=== PATIENT | female | born 1975 | race Two or more races ===

== ENCOUNTER → 2024-03-08 | Outpatient (CLI) | payer MEDICAID, SELFPAY ==
--- NOTE | 2024-03-08 14:10 | XR_ITS ---
Examination: Bone densitometry Date and time of exam:March 08, 2024 1419 hours INDICATIONS: Premenopausal, calcium 6 months, diagnosis other specified disorders of bone Technique: Lumbar spine and hip total bone mineralization values of an calculated. Peak reference and age match control results have been displayed. Findings: Lumbar spine total bone mineralization is1.016 gm/cm2. This is 0.3 standard deviations below peak reference. This is 0.3 standard deviations above age-matched controls. Hip total bone mineralization is 0.938 gm/cm2 This is 0.2 standard deviations below peak reference. This is 0.1 standard deviations above age-matched controls Impression: There is normal mineralization based on lumbar spine measurements. There is osteopenia based on hip measurements
--- NOTE | 2024-03-08 14:30 | XR_ITS ---
Examination: Screening digital mammography, bilateral Computer aided detection 3-D breast Tomosynthesis, bilateral Date and time of exam: March 08, 2024 1318 hours Compared to mammograms dating to August 01, 2015 Indication: Screening Technique: Nonmagnified MLO, CC views of the breasts to been obtained, reconstructed from 3-D Tomosynthesis images. R2 computer aided detection program utilized for evaluation of suspicious masses and/or abnormal calcifications. 3-D Tomosynthesis images obtained. Findings: The breasts are heterogeneously dense, which may obscure small masses Benign calcifications. No interval suspicious masses Impression: BI-RADS category II: Benign Findings. Recommend 1 year follow-up mammogram.
== END | disposition home or self-care (01) ==
LOC: CDIM 14:01
PROVIDERS: Referring Provider Nurse Practitioner Family; Visit Provider Nurse Practitioner Family
DX: Z12.31 Encounter for screening mammogram for malignant neoplasm of breast (principal); R92.323 Mammographic fibroglandular density, bilateral breasts; R92.1 Mammographic calcification found on diagnostic imaging of breast; M85.88 Other specified disorders of bone density and structure, other site
CPT/HCPCS: 77063; 77067; 77080

== ENCOUNTER 2024-06-27 10:11 | Emergency (ER) | payer MEDICAID, SELFPAY ==
[2024-06-27 10:14] VITALS: BP 135/75; PULSE 79; RESP 18; TEMP 36.4; O2SAT 98; BMI 24.1
--- NOTE | 2024-06-27 10:20 | EDNOTE_ITS ---
Neuro Symptoms Deficit-RME/HPI General Stated Complaint: DIZZINESS X PM WITH LEFT BODY TINGLE X AM Time Seen by Provider: 06/27/24 10:22 Arrival date/time: 06/27/24 10:11 Limitations: no limitations RME / HPI RME / HPI Narrative: 49 year old female with no significant past medical history, presented to the ER BIBA with a chief complaint of dizziness. Patient also states complaint of nausea, vomiting, pain in the back of her neck. Per patient, she began feeling light-headed and dizzy around 0900 in the morning on 06/26/24. Her symptoms left and came back again around night at 1800. She woke up this morning unable to stand by herself, I can't stand straight, and ambulate due to her increased dizziness. Patient states she is dizzy when laying or standing and worsens with head movement. Per patient, she states she is taking vitamin D for medication. Patient denies history of vertigo. Related Data Home Medications ?Medication ?Instructions ?Recorded ?Confirmed calcium carbonate (Calcium 600) 600 mg PO QDAY 9 09/23/18 folic acid 800 mcg tablet 0.8 mg PO QDAY 09/23/18 07/03/14 vit no.95-ferrous 1 tab PO QDAY 09/23/1811/24 fumarate 28 mg-folic acid 800 mcg tablet () Previous Rx's ?Medication ?Instructions ?Recorded ibuprofen 800 mg tablet 800 mg PO Q6H PRN pain #90 t abs 12/06/18 dexamethasone 4 mg tablet 4 mg PO QDAY 3 days #3 tabs 06/27/24 hydrochlorothiazide 12.5 mg capsule 12.5 mg PO QAM #14 caps 06/27/24 meclizine 25 mg tablet 25 mg PO TID PRN motion sick ness 06/27/24 #20 tabs Allergies Allergy/AdvReac Type Severity Reaction Status Date / Time NKA* Allergy Uncoded 12/05/18 07:11 Review of Systems Review of Systems Systems Reviewed: All systems reviewed, normal except as documented Narrative Review of Systems: Gen: No fever, no chills, no weight loss EYES: No discharge, no visual changes, no pain HEENT: No ear pain, no congestion, no sore throat, +back of neck pain PULM: No shortness of breath, no cough, no congestion CV: No chest pain, no dyspnea on exertion, no palpitations GI: +nausea, +vomiting, no diarrhea, no pain, no constipation : No frequency, no urgency, no dysuria Musc/skel: No joint pain, no back pain Skin: No rash Psyc: No hallucinations, no depression Heme/Lymph: No easy bleeding or bruising tendencies Neuro: +weakness, +dizziness, no headache Past Medical History Past Medical History ENDOCRINE: Positive Endocrine Disorders Family History FAMILY HISTORY: Positive Family Cancer (MOTHER) Social History SMOKING STATUS: Never smoker SECOND HAND EXPOSURE: No SUBSTANCE USE: does not use ALCOHOL: Never ED Exam Narrative Physical exam: NIH STROKE SCALE 1a. Level of Consciousness (Alert, drowsy, etc) [0 = Alert; 1 = Drowsy; 2 = Stuporous; 3 = Coma] = 0 1b. LOC Questions: (Month, age) [0 = Answers both correctly; 1 = Answers one correctly; 2 = Incorrect] = 0 1c. LOC Commands (Open/ close eyes, make fist/ let go) [0 = Obeys both correctly; 1 = Obeys one correctly; 2 = Incorrect] = 0 2. Best Gaze (Eyes open - patient follows examiner?s finger or face) [0 = Normal; 1 = Partial gaze palsy; 2 = Forced deviation] = 0 3. Visual Bartlett (Introduce visual stimulus/ threat to pt?s visual field quadrants) [0 = No visual loss; 1 = Partial Hemianopia; 2 = Complete Hemianopia; 3 = Bilateral Hemianopia (Blind)] = 0 4. Facial Paresis (Show teeth, raise eyebrows and squeeze eyes shut) [0 = Normal; 1 = Minor; 2 = Partial; 3 = Complete] = 0 5a. Left Arm Motor Function (Elevate arm to 90 degrees if patient is sitting, 45 degrees if supine) [0 = No drift; 1 = Drift; 2 = Can?t resist gravity; 3 = No effort against gravity; 4 No movement; X = Untestable (Joint fusion or limb amp)] = 0 5b. Right Arm Motor Function (Elevate arm to 90 degrees if patient is sitting, 45 degrees if supine) [0 = No drift; 1 = Drift; 2 = Can?t resist gravity; 3 = No effort against gravity; 4 = No movement; X = Untestable (Joint fusion or limb amp)] = 0 6a. Left Leg Motor Function (Elevate 30 degrees with patient supine) [0 = No drift; 1 = Drift; 2 = Can?t resist gravity; 3 = No effort against gravity; 4 = No movement; X = Untestable (Joint fusion or limb amp)] = 0 6b.? Right Leg Motor Function (Elevate 30 degrees with patient supine) [0 = No drift; 1 = Drift; 2 = Can?t resist gravity; 3 = No effort against gravity; 4 = No movement; X = Untestable (Joint fusion or limb amp)] = 0 7. Limb Ataxia (Finger-nose, heel down clemente) [0 = No ataxia; 1 = Present in one limb; 2 = Present in two limbs] = 0 8. Sensory (Pin prick to face, arm, trunk, and leg; compare side to side) [0 = Normal; 1 = Partial loss; 2 = Severe loss] = 0 9. Best Language (Name item, describe a picture and read sentences) [0 = No aphasia; 1 = Mild to moderate aphasia; 2 = Severe aphasia; 3 = Mute] = 0 10. Dysarthria (Evaluate speech clarity by patient repeating listed words) [0 = Normal articulation; 1 = Mild to moderate slurring of words; 2 = Near to unintelligible or worse; X = Intubated or other physical barrier] = 0 11. Extinction and Inattention (Use information form prior testing to identify neglect or double simultaneous stimuli testing) [0 = No neglect; 1 = Partial neglect; 2 = Complete neglect] = 0 TOTAL SCORE = 0 General Limitations: Present no limitations General appearance: Present alert and in no apparent distress Head Head exam: Present atraumatic Eye Eye exam: Present normal appearance, PERRL and EOMI; Absent nystagmus ENT ENT exam: Present normal exam, normal oropharynx and mucous membranes moist Neck Neck exam: Present normal inspection, full ROM and trachea midline Chest Chest inspection: Present normal inspection and symmetric chest wall rise Respiratory Respiratory exam: Present normal lung sounds bilaterally Cardiovascular Cardiovascular exam: Present regular rate, normal rhythm and normal heart sounds Abdominal Exam Abdominal exam: Present soft and normal bowel sounds Extremities Exam Extremities exam: Present normal inspection and full ROM Back Exam Back exam: Present normal inspection and full ROM Neurological Exam Neurological exam: Present alert, oriented X3 and CN II-XII intact; Absent normal gait (patient was able to stable to stand and bare weight with assistance but could not ambulate ) Psychiatric Psychiatric exam: Present normal affect and normal mood Skin Skin exam: Present warm, dry, intact and normal color Course Course Course Narrative: 1024: Stroke alert was called. Congruent orders were made for stroke protocol. Quality Measures none Orders Category Date Time Status CT Screening NOW Care 06/27/24 10:[address] Screening NOW Care 06/27/24 10:[address] Screening NOW Care 06/27/24 13:40 Active Credit Investigator now Care 06/27/24 10:22 Active Continuous Pulse Oximetry QSHIFT Care 06/27/24 10:22 Completed MRI Screening NOW Care 06/27/24 10:24 Active NIH Stroke Scale NOW Care 06/27/24 10:22 Active Notify provider NEEDED Care 06/27/24 10:22 Active Nurse Swallow Screen x1 Care 06/27/24 10:22 Active Consult to Neurology / Tele-Neurology Stat Cons 06/27/24 10:[address] angio stroke protocol Stat Exams 06/27/24 10:[address] head/brain w con Stat Exams 06/27/24 13:[address] stroke protocol Stat Exams 06/27/24 10:24 Completed MR stroke protocol Stat Exams 06/27/24 10:24 Stop Req B-Type Natriuretic Peptide Stat Lab 06/27/24 10:45 Completed C-Reactive Protein Stat Lab 06/27/24 10:45 Completed CBC Stat Lab 06/27/24 10:45 Completed CMP [Comprehensive Metabolic Panel] Stat Lab 06/27/24 10:45 Completed Drug Screen,Urine Routine Lab 06/27/24 11:12 Completed Glycohemoglobin w (eAG) Stat Lab 06/27/24 10:45 Completed Lipid Panel Stat Lab 06/27/24 10:45 Completed Magnesium Stat Lab 06/27/24 10:45 Completed Partial Thromboplastin Time Stat Lab 06/27/24 10:45 Completed Prothrombin Time with INR Stat Lab 06/27/24 10:45 Completed Sed Rate (ESR) Stat Lab 06/27/24 10:45 Completed Troponin I Stat Lab 06/27/24 10:45 Completed Urinalysis Routine Lab 06/27/24 11:12 Completed Meclizine HCl [Antivert] Med 06/27/24 13:11 Discontinued 25 mg PO X1 ONE Ondansetron Inj [Zofran Inj] Med 06/27/24 10:22 Active 4 mg IV Q4HR PRN dexAMETHasone TAB [Decadron Tab] Med 06/27/24 13:22 Discontinued 4 mg PO X1 ONE hydroCHLOROthiazide Med 06/27/24 13:22 Discontinued 12.5 mg PO X1 ONE Code Status Routine Oth 06/27/24 10:22 Ordered EKG (RT) Stat RT 06/27/24 10:24 Draft Referral Material Control Specialist NOW 06/27/24 10:22 Active Reevaluation(s) Reevaluation #1: Patient is doing better. CT results are negative. Will give Meclizine, Decadron, Hydrochlorothiazide. Reevaluation pending. Time: 13:21 Vital Signs Vital signs: Vital Signs Temperature 97.5 F 06/27/24 10:14 Pulse Rate 79 06/27/24 10:14 Respiratory Rate 18 06/27/24 10:14 Blood Pressure 135/75 H 06/27/24 10:14 Pulse Oximetry (%) 98 06/27/24 10:14 Oxygen Delivery Method Room Air 06/27/24 10:14 Procedures -ED EKG Interpretation #1: Date of EK06/27/24 Time of EK:00 Rate: 70 Interpretation: Interpreted by me Additional EKG comment: sinus rhythm, rate 70, no ischemia, normal intervals Neuro Symptoms / Deficit MDM Narrative MDM Narrative:: I, Ami Jean, am scribing for and in the presence of Dr. Mtz. Patient presenting with symptoms of peripheral vertigo in the form of tinnitus and vertigo feeling This is my initial impression However because of incapacity asked patient to walk we had to consider the fact that she might have a stroke Her workup came back really negative Neurology did not even think that she had a stroke EBCT postcontrast was done to rule out possibility of venous thrombosis which came back negative CTA was negative Patient was given dexamethasone hydrochlorothiazide and meclizine which resolved her symptoms Patient will be discharged on the same regimen Final diagnosis Benign positional vertigo Plan Dexamethasone, hydrochlorothiazide, meclizine Patient was discharged from the Patient data External records reviewed:: [facility] previous records and EMS form Clinical information provided by:: patient and EMS Social determinants that could affect healthcare access:: none Patient has the following chronic illnesses:: none How is presenting disease/condition affected by chronic disease/condition?: uneffected by Evaluation data The following diagnostics were reviewed and interpreted by me:: lab results, radiology exam(s) and EKG tracing(s) Lab and/or radiology exams considered but not ordered:: none Interpretation Summary: Ordering Physician: Leann Mtz MD Date of Service: 06/27/24 Procedure(s): CT stroke protocol Accession Number(s): [id number] cc: Leann Mtz MD; Harpal Beverly MD~ Examination: CT brain head without contrast. 2-D sagittal coronal reconstructions Date and time of exam:June 27, 2024 1028 hrs. Indications: Stroke alert, left-sided body paresthesias beginning 9:00 AM this morning CTDI: vol (mGy):44.6 DLP: (mGycm):823 Technique: Multiple CT axial sections of the brain have been obtained, 5 mm slice thickness. Contrast has not been administered. 2-D sagittal, coronal reconstructions have been obtained Low dose protocols were performed. One or more of the following dose reduction techniques were used; automated exposure control, adjustment of the mA and/or KV according to patient size, use of iterative reconstruction technique. Findings: No significant ventricular enlargement. Intra-axial or extra-axial hemorrhage density is not seen. No mass effect or midline shift Basal cisterns are not remarkable. Fourth ventricle is midline. Cranial vault intact. Impression: Negative for acute hemorrhage, mass effect or midline shift Dictated By: Harpal Beverly MD Signed By: <Electronically signed by Harpal Beverly MD in OV> 06/27/24 1032 Ordering Physician: Leann Mtz MD Date of Service: 06/27/24 Procedure(s): CT angio stroke protocol Accession Number(s): [id number] cc: Leann Mtz MD; Ashley BlakelyC; Harpal Beverly MD~ Examination: CTA carotids with intravenous contrast CTA brain, head with intravenous contrast. 2-D sagittal, coronal reconstructions. 3-D reconstructions. Exam date and time: June 27, 2024 10:52 AM Indications: Stroke alert, onset left-sided paresthesias today CTDI: vol (mGy) 29.2 DLP: (mGycm) 106 Technique: Multiple CTA axial brain, head carotid images post intravenous contrast injection 100 cc, Isovue-370. 2-D sagittal, coronal reconstructions. 3-D reconstructions, 3-D post processing including vascular maximum intensity projection images. Low dose protocols were performed. One or more of the following dose reduction techniques were used; automated exposure control, adjustment of the mA and/or KV according to patient size, use of iterative reconstruction technique. Findings: No significant common carotid carotid bifurcation or internal carotid artery stenoses Dominant right vertebral artery no critical vertebral artery stenoses in the neck No cerebral large vessel arterial occlusions or thrombus The study is degraded by patient motion Impression: No significant neck arterial stenoses No cerebral large vessel arterial occlusions Dictated By: Harpal Beverly MD Signed By: <Electronically signed by Harpal Beverly MD in OV> 06/27/24 1129 ===== Procedure(s): CT head/brain w [facility] Accession Number(s): [id number] cc: Leann Mtz MD; Ashley Blakely-C; Harpal Beverly MD~ Examination: CT brain with intravenous contrast Technique: Multiple axial brain MRI images 2.0 mm slice thickness post intravenous administration 50 cc [id number] Exam date and time: June 27, 2024 1359 hrs. Indications: Dizziness headaches today Findings: Ventricles are normal in size and configuration No mass effect upon the ventricular system. No effacement cortical sulci No abnormal enhancing cerebellar or cerebral lesions Cranial vault is intact Impression: Negative for acute hemorrhage mass effect or midline shift No abnormal enhancing cerebellar or cerebral lesions Dictated By: Harpal Beverly MD Medications / Prescriptions Medications or Prescriptions considered but not ordered:: none Medication administrations:: Medication Administration History Ondansetron HCl (Ondansetron Inj 2 Mg/Ml Inj 2 Ml) 4 mg IV Q4HR PRN PRN Reason: NAUSEA OR VOMITING Stop: 07/27/24 10:21 Last Admin: 06/27/24 13:06 Dose: 4 mg Documented By: RD Discontinued Medications Dexamethasone (Dexamethasone 4 Mg Tablet) 4 mg PO X1 ONE; Protocol Stop: 06/27/24 13:23 Last Admin: 06/27/24 13:34 Dose: 4 mg Documented By: GM Hydrochlorothiazide (Hydrochlorothiazide 12.5 Mg Capsule) 12.5 mg PO X1 ONE Stop: 06/27/24 13:23 Last Admin: 06/27/24 13:34 Dose: 12.5 mg Documented By: ANI Meclizine HCl (Meclizine Hcl 25 Mg Tablet) 25 mg PO X1 ONE Stop: 06/27/24 13:12 Last Admin: 06/27/24 13:35 Dose: 25 mg Documented By: ANI see above. Consultations Consultation(s) initiated? (list below): No Diagnosis Neuro Differential Diagnosis: cerebrovascular accident and other (TIA, tendinitis ) Most likely diagnosis given after review of the tests above:: Episodic peripheral vertigo Admission Indicated Admission indicated?: not indicated Admission Request Was there a request for admission?: No Disposition Plan Disposition Plan: Discharge Discharge Attestation Discharge Attestation: The patient and all family members were given an opportunity to ask questions and understood the discharge instructions. Discharge instructions specifically effects, indications for sooner follow up or return to the emergency department, and the expected course of current diagnosis. Patient condition: Stable Discharge Plan Plan Patient Disposition: HOME (Self Care) Patient condition on transfer: Stable Prescriptions/Referrals Prescriptions/Med Rec: New meclizine 25 mg tablet 25 mg PO TID PRN (Reason: motion sickness) Qty: 20 0RF hydrochlorothiazide 12.5 mg capsule 12.5 mg PO QAM Qty: 14 0RF dexamethasone 4 mg tablet 4 mg PO QDAY 3 Days Qty: 3 0RF No Action calcium carbonate [Calcium 600] 600 mg calcium (1,500 mg) Tablet 600 mg PO QDAY folic acid 800 mcg Tablet 0.8 mg PO QDAY PNV cmb#95-ferrous fumarate-FA [] 28 mg iron- 800 mcg Tablet 1 tab PO QDAY ibuprofen 800 mg tablet 800 mg PO Q6H PRN (Reason: pain) Qty: 90 0RF Referrals: Ashley Blakely FNP-C [Primary Care Provider] - In 1 week Problem List Clinical Impression: Episodic peripheral vertigo Patient/Caregiver Discharge Instructions Discharge Activity: resume usual activities Education Materials: Vertigo Medicine Tx, Dizziness Vertigo and Balance ..., ED BPV Vertigo, ED Vertigo, Unspecified Print Language: Turkmen Stand Alone Forms: Tania Award Info., Patient Portal Info Letter
[2024-06-27 10:22] VITALS: PULSE 80; RESP 20; O2SAT 98
--- NOTE | 2024-06-27 10:24 | XR_ITS ---
Examination: CT brain head without contrast. 2-D sagittal coronal reconstructions Date and time of exam:June 27, 2024 1028 hrs. Indications: Stroke alert, left-sided body paresthesias beginning 9:00 AM this morning CTDI: vol (mGy):44.6 DLP: (mGycm):823 Technique: Multiple CT axial sections of the brain have been obtained, 5 mm slice thickness. Contrast has not been administered. 2-D sagittal, coronal reconstructions have been obtained Low dose protocols were performed. One or more of the following dose reduction techniques were used; automated exposure control, adjustment of the mA and/or KV according to patient size, use of iterative reconstruction technique. Findings: No significant ventricular enlargement. Intra-axial or extra-axial hemorrhage density is not seen. No mass effect or midline shift Basal cisterns are not remarkable. Fourth ventricle is midline. Cranial vault intact. Impression: Negative for acute hemorrhage, mass effect or midline shift
--- NOTE | 2024-06-27 10:24 | EKG_ITS ---
[facility] Test Date: 2024-06-27 Pat Name: LUZ ELENA ROBERTS Department: Room: - Gender: Female Salon Stylist: : 1975 Requested By: Leann Mtz Order Number: [id number] Reading MD: Leann Mtz Measurements Intervals [place] Rate: 70 P: 38 TX: 164 QRS: 56 QRSD: 79 T: 43 QT: 393 QTc: 426 Interpretive Statements SINUS RHYTHM No previous ECG available for comparison /store/S0/[id number]/ecg/[id number].pdf
[2024-06-27 10:40] VITALS: PULSE 79
--- NOTE | 2024-06-27 10:41 | XR_ITS ---
Examination: CTA carotids with intravenous contrast CTA brain, head with intravenous contrast. 2-D sagittal, coronal reconstructions. 3-D reconstructions. Exam date and time: June 27, 2024 10:52 AM Indications: Stroke alert, onset left-sided paresthesias today CTDI: vol (mGy) 29.2 DLP: (mGycm) 106 Technique: Multiple CTA axial brain, head carotid images post intravenous contrast injection 100 cc, Isovue-370. 2-D sagittal, coronal reconstructions. 3-D reconstructions, 3-D post processing including vascular maximum intensity projection images. Low dose protocols were performed. One or more of the following dose reduction techniques were used; automated exposure control, adjustment of the mA and/or KV according to patient size, use of iterative reconstruction technique. Findings: No significant common carotid carotid bifurcation or internal carotid artery stenoses Dominant right vertebral artery no critical vertebral artery stenoses in the neck No cerebral large vessel arterial occlusions or thrombus The study is degraded by patient motion Impression: No significant neck arterial stenoses No cerebral large vessel arterial occlusions
--- NOTE | 2024-06-27 10:51 | PC.NURSE ---
Per Dr Bean teleneurologist, unable to access system, please order CTA head and neck and if neg for dissection/LVO, treat symptoms as physician deems appropriate.
--- NOTE | 2024-06-27 11:31 | PC.NURSE ---
BIBA FROM HOME DIZZINESS X PM WITH LEFT BODY TINGLE X AM. B.E.F.A.S.T PER EMS 0 . PATIENT ABLE TO AMBULATE WITH ASSISTANCE BUT HAS UNSTEADY GAIT. HX OSTEOPOROSIS WITH NKA.
[2024-06-27 11:32] LABS: Collection Type, Urine Voided
--- NOTE | 2024-06-27 11:32 | PD.TNEURO ---
Tele Neuro Consultation Consultation Date 06/27/24 Most Recent Vital Signs Last Vital Signs Temp 97.5 F 06/27/24 10:14 Pulse 79 06/27/24 10:40 Resp 18 06/27/24 10:14 BP 135/75 H 06/27/24 10:14 Pulse Ox 98 06/27/24 10:14 O2 Del Method Room Air 06/27/24 10:14 Assessment and Plan Assessment Assessment: [facility] Patient Name:???LUZ ELENA ROBERTS Date of :???1975 Date of Service:???06/27/2024 10:20:55 Diagnosis:?R42 - Dizziness/ Vertigo/ Giddiness Impression: ?This is a 49 y/o RH woman with no stroke risk factors who developed lightheadedness and room spinning dizziness around 1800 yesterday evening. She was able to sleep. She woke up still feeling dizzy and then started having tingling on her left ?side at around 0900 today. She called 911. EMS found an unsteady gait. She is also nauseous and has a constant posterior headache with some neck discomfort. ? ?#1 Vertigo ?#2 Left arm sensory deficit ?#3 Headache ?#4 Nausea ? ?Differential diagnosis includes right vertebral artery dissection with ischemia, migraine, or systemic metabolic/acid base derangement or infection. ?If CTA shows no dissection I have a very low suspicion for stroke or other neurologic emergency. ? Our recommendations are outlined below. Recommendations: ? Neuro Checks Sign Out: ? Discussed with Emergency Department Provider Advanced Imaging: Advanced imaging has been ordered. Results pending. Metrics: Last Known Well: 06/26/2024 18:00:00 Dispatch Time: 06/27/2024 10:20:55 Arrival Time: 06/27/2024 10:11:00 Initial Response Time: 06/27/2024 10:24:31Symptoms: dizzy, left sided tingling, unsteady gait. Initial patient interaction: 06/27/2024 10:29:40 NIHSS Assessment Completed: 06/27/2024 10:31:40Patient is not a candidate for Thrombolytic. Thrombolytic Medical Decision: 06/27/2024 10:27:02Patient was not deemed candidate for Thrombolytic because of following reasons: LKW outside 4.5 hr window. . Noncontrast head CT shows no hemorrhage, hyperdense vessel sign, or definite acute ischemic changes. Primary Provider Notified of Diagnostic Impression and Management Plan on: 06/27/2024 10:36:53 History of Present Illness:Patient is a 49 year old Female. Patient was brought by private transportation with symptoms of dizzy, left sided tingling, unsteady gait. This is a 49 y/o RH woman with no stroke risk factors who developed lightheadedness and room spinning dizziness around 1800 yesterday evening. She was able to sleep. She woke up still feeling dizzy and then started having tingling on her left side at around 0900 today. She called 911. EMS found an unsteady gait. She is also nauseous and has a constant posterior headache with some neck discomfort. Past Medical History: ?There is no history of Hypertension ?There is no history of Hyperlipidemia ?There is no history of Coronary Artery Disease ?There is no history of Stroke ?There is no history of Seizures ?There is no history of Migraine Headaches Medications: No Anticoagulant use? No Antiplatelet use Reviewed EMR for current medications Allergies:? Reviewed Social History: Smoking: No Family History: There is no family history of premature cerebrovascular disease pertinent to this consultation ROS : 14 Points Review of Systems was performed and was negative except mentioned in HPI. Past Surgical History: There Is No Surgical History Contributory To Today?s Visit Examination: BP(138/73),?Pulse(88),?Blood Glucose(132) 1A: Level of Consciousness - Alert; keenly responsive?+ 0 1B: Ask Month and Age - Both Questions Right?+ 0 1C: Blink Eyes & Squeeze Hands - Performs Both Tasks?+ 0 2: Test Horizontal Extraocular Movements - Normal?+ 0 3: Test Visual Bartlett - No Visual Loss?+ 0 4: Test Facial Palsy (Use Grimace if Obtunded) - Normal symmetry?+ 0 5A: Test Left Arm Motor Drift - No Drift for 10 Seconds?+ 0 5B: Test Right Arm Motor Drift - No Drift for 10 Seconds?+ 0 6A: Test Left Leg Motor Drift - No Drift for 5 Seconds?+ 0 6B: Test Right Leg Motor Drift - No Drift for 5 Seconds?+ 0 7: Test Limb Ataxia (FNF/Heel-Costa) - No Ataxia?+ 0 8: Test Sensation - Mild-Moderate Loss: Less Sharp/More Dull?+ 1 9: Test Language/Aphasia - Normal; No aphasia?+ 0 10: Test Dysarthria - Normal?+ 0 11: Test Extinction/Inattention - No abnormality?+ 0 NIHSS Score:?1 NIHSS Free Text :?reduced sensation left arm Pre-Morbid Modified [place] Scale:0 Points = No symptoms at all Spoke with :?ED physician This consult was conducted in real time using interactive audio and video technology. Patient was informed of the technology being used for this visit and agreed to proceed. Patient located in hospital and provider located at home/office setting. Patient is being evaluated for possible acute neurologic impairment and high probability of imminent or life-threatening deterioration. I spent total of 29 minutes providing care to this patient, including time for face to face visit via telemedicine, review of medical records, imaging studies and discussion of findings with providers, the patient and/or family. Dr Graciela Bean [facility] For Inpatient follow-up with [facility] physician please call [facility] at . As we are not an outpatient service for any post hospital discharge needs please contact the hospital for assistance. If you have any questions for the [facility] physicians or need to reconsult for clinical or diagnostic changes please contact us via [facility] at .
[2024-06-27 11:36] LABS: Basophils % (Auto) 0 % (0-2.5); Eosinophils # (Auto) 0.1 Thou/mm3 (0.0-0.5); Eosinophils % (Auto) 1 % (0-10); Hemoglobin 13.3 g/dL (12.0-16.0); Immature Granulocytes % (Auto) 0 % (0-0); Immature Granulocytes Auto 0.02 Thou/mm3 (0.00-0.00); Lymphocytes # (Auto) 1.6 Thou/mm3 (1.0-4.8); Lymphocytes % (Auto) 25 % (10-50); Mean Corpuscular Hemoglobin 32.8 pg (25.0-35.0); Mean Corpuscular Volume 94 fL (80-100); Monocytes # (Auto) 0.3 Thou/mm3 (0.0-0.8); Monocytes % (Auto) 5 % (0-12); Neutrophils # (Auto) 4.5 Thou/mm3 (1.8-7.7); Neutrophils % (Auto) 69 % (37-80); Nucleated Red Blood Cell % 0 /100 WBC (0); Platelet Count 333 Thou/mm3 (140-440); Red Blood Count 4.05 Miln/mm3 (4.00-5.20); White Blood Count 6.5 Thou/mm3 (3.6-11.0)
[2024-06-27 11:49] LABS: Bilirubin,Urine Negative (Negative); Blood,Urine Negative (Negative); Clarity,Urine Clear (Clear/Hazy); Color,Urine Colorless (Lt Yel-Yel); Glucose, Urine Negative (Negative); Ketones,Urine Negative (Negative); Leukocyte Esterase,Urine Negative (Negative); Nitrite,Urine Negative (Negative); Protein,Urine Negative (Neg - Trace); RBC,Urine 3 /hpf (0-3); Specific Gravity,Urine 1.047 (1.001-1.035); Squamous Epithelial Cell,Urine 1 /hpf (0-5); Urobilinogen,Urine Negative mg/dL (0.0-1.0); WBC,Urine 4 /hpf (0-5)
[2024-06-27 11:54] LABS: B-Type Natriuretic Peptide < 20 pg/mL (0-100); Partial Thromboplastin Time 28.5 Seconds (22.0-36.0); Prothrombin Time 10.6 Seconds (9.0-12.2)
[2024-06-27 12:00] LABS: Sed Rate (ESR) 29 mm/hr (0-20)
[2024-06-27 12:13] LABS: Glucose Estimated Average 108 mg/dL (80-131); Hemoglobin A1C 5.4 % Hgb (4.8-6.0)
[2024-06-27 12:14] LABS: Amphetamine/Methamp Scrn,U Negative (Negative); Barbiturate Screen,Urine Negative (Negative); Benzodiazepines Screen,Urine Negative (Negative); Benzoylecgonine Screen, Ur Negative (Negative); Fentanyl Screen,Urine Negative (Negative); Opiate Screen,Urine Negative (Negative); THC Screen,Urine Negative (Negative)
[2024-06-27 12:42] VITALS: BP 109/72; PULSE 79; RESP 17; TEMP 36.6; O2SAT 98
[2024-06-27 12:44] LABS: Alanine Aminotransferase 17 U/L (10-49); Albumin, Serum 4.7 gm/dL (3.5-5.0); Albumin/Globulin Ratio 1.9 (1.2-2.2); Alkaline Phosphatase 57 U/L (46-116); Anion Gap 13 (7-16); Aspartate Amino Transferase 16 U/L (0-34); BUN/Creatinine Ratio 20 Ratio (12-20); Bilirubin,Total 0.5 mg/dL (0.3-1.2); Blood Urea Nitrogen 12 mg/dL (9-23); C-Reactive Protein 0.6 mg/dL (0.0-0.9); Calcium 9.3 mg/dL (8.3-10.6); Calcium (Corrected) 9.3 mg/dL (8.5-10.1); Carbon Dioxide 23.7 mMol/L (20.0-31.0); Cardiac Risk Estimate 3.5 RATIO (3.7-5.6); Chloride 103 mMol/L (98-107); Cholesterol 225 mg/dL (132-200); Creatinine (Component) 0.6 mg/dL (0.6-1.3); Estimated Creatinine Clearance 103.2 mL/min (>60); Globulin 2.5 gm/dL (2.3-3.5); Glucose 119 mg/dL (74-106); HDL Cholesterol 64 mg/dL (40-60); LDL Cholesterol,Calculated 139 mg/dL (0-130); Magnesium 1.8 mg/dL (1.6-2.6); Osmolality,Calculated 280 (275-295); Potassium 4.2 mMol/L (3.4-5.1); Sodium 140 mMol/L (136-145); Total Protein 7.2 gm/dL (5.7-8.2); Triglycerides 112 mg/dL (30-150); Troponin I < 0.002 ng/mL (0.0-0.045); eGFR > 60 See Note
[2024-06-27] MEDS: ONDANSETRON INJ 2 MG/ML INJ 2 ML 4 MG IV (13:06)
[2024-06-27 13:34] VITALS: BP 120/81; PULSE 74
[2024-06-27] MEDS: dexAMETHasone 4 MG TABLET PO (13:34)
[2024-06-27] MEDS: hydroCHLOROthiazide 12.5 MG CAPSULE PO (13:34)
[2024-06-27] MEDS: MECLIZINE HCL 25 MG TABLET PO (13:35)
--- NOTE | 2024-06-27 13:39 | XR_ITS ---
Examination: CT brain with intravenous contrast Technique: Multiple axial brain MRI images 2.0 mm slice thickness post intravenous administration 50 cc [id number] Exam date and time: June 27, 2024 1359 hrs. Indications: Dizziness headaches today Findings: Ventricles are normal in size and configuration No mass effect upon the ventricular system. No effacement cortical sulci No abnormal enhancing cerebellar or cerebral lesions Cranial vault is intact Impression: Negative for acute hemorrhage mass effect or midline shift No abnormal enhancing cerebellar or cerebral lesions
[2024-06-27 15:13] VITALS: BP 133/72; PULSE 62; RESP 17; TEMP 36.7; O2SAT 98
== END 2024-06-27 17:03 | disposition home or self-care (01) ==
PROVIDERS: Emergency Provider Emergency Medicine; PCP Nurse Practitioner Family
DX: H81.399 Other peripheral vertigo, unspecified ear (principal)
CPT/HCPCS: 36415; 70450; 70460; 70496; 70498; 80053; 80061; 80307; 81001; 83036; 83735; 83880; 84484; 85025; 85610; 85652; 85730; 86140; 93005; 99285; A4649; J2405; J8540; Q9967; A9270

== ENCOUNTER → 2024-07-15 | Outpatient (CLI) | payer MEDICAID, SELFPAY ==
--- NOTE | 2024-07-15 12:30 | XR_ITS ---
Examination: Pelvic ultrasound, transabdominal, complete Technique: Transabdominal ultrasound of the pelvis performed using grayscale imaging Date and time of exam: July 15, 2024 1244 hours INDICATIONS: Irregular heavy vaginal bleeding 1 year FINDINGS: Uterus 9.7 cm no uterine mass or intrauterine gestation Endometrial stripe 0.8 cm Right ovary 3.7 cm arterial flow 23 x 21 mm cyst Left ovary 3.1 cm arterial flow IMPRESSION: No uterine mass or intrauterine gestation
--- NOTE | 2024-07-15 12:30 | XR_ITS ---
Examination: Transvaginal ultrasound of the pelvis, complete Technique: Transvaginal sonographic images pelvis performed using reyna scale imaging Exam date and time: July 15, 2024 1304 hours INDICATIONS: Abnormal vaginal bleeding beginning one year ago FINDINGS: Uterus 7.9 cm Uterine fundal hypoechoic mass 16 x 15 x 12 mm Anterior cervix mass versus cyst with internal echoes in the cervix 9 x 5 x 9 mm Right ovary 3.8 cm arterial flow 29 x 26 mm cyst Left ovary 3.0 cm arterial flow small follicles IMPRESSION: Uterine fundal area of fibroid degeneration 16 x 15 x 12 mm Recommend MRI pelvis follow-up to exclude small solid mass in the cervix 9 x 5 x 9 mm.
== END | disposition home or self-care (01) ==
LOC: CDIM 12:24
PROVIDERS: PCP Nurse Practitioner Family; Referring Provider Obstetrics & Gynecology; Visit Provider Obstetrics & Gynecology
DX: N93.9 Abnormal uterine and vaginal bleeding, unspecified (principal); D25.9 Leiomyoma of uterus, unspecified
CPT/HCPCS: 76830; 76856